=== PATIENT | female | born 1985 | race Caucasian/White ===

== ENCOUNTER → 2019-05-03 18:58 | Outpatient (CLI) | payer OTHER, MEDICAID, SELFPAY | PROVIDERS: Family Provider Family Medicine; PCP Family Medicine; Visit Provider Nurse Practitioner Family | DX: L02.91 Cutaneous abscess, unspecified (principal) | CPT/HCPCS: 87070; 87075; 87077; 87147; 87205 ==

== ENCOUNTER 2023-06-10 20:00 | Emergency (ER) | payer BC, SELFPAY ==
[2023-06-10 20:03] VITALS: BP 125/72; PULSE 115; RESP 20; TEMP 35.8; O2SAT 98; BMI 32.3
--- NOTE | 2023-06-10 22:45 | PC.NURSE ---
pressure in both ears
== END 2023-06-11 02:36 | disposition left against medical advice (07) ==
PROVIDERS: Emergency Provider Emergency Medicine; Family Provider Family Medicine; PCP Family Medicine
CPT/HCPCS: 99281